=== PATIENT | female | born 1995 | race Caucasian/White ===

== ENCOUNTER 2021-09-28 22:55 | Emergency (ER) | payer MEDICAID ==
[~2021-09-28] VITALS: Ht 157.5 cm; Wt 45.5 kg
[~2021-09-28 22:55] MED LIST: CLIN-97 PO; ONDA4TAB59 PO
[2021-09-28 23:02] VITALS: BP 115/79
== END 2021-09-28 23:43 ==
LOC: ER 22:57
DX: Z79.899 Other long term (current) drug therapy (principal)
CPT/HCPCS: 99283